=== PATIENT | male | born 1990 | race Caucasian/White ===

== ENCOUNTER 2023-07-05 06:45 | Day surgery (SDC) | payer OTHER ==
[2023-07-05] VITALS (212 sets, daily range): BP systolic 93–149; BP diastolic 48–103
--- NOTE | 2023-07-05 07:00 | NUR ---
PT HAS ARRIVED TO [facility] SUITES WITH FATHER, BOTH ESCORTED TO ROOM, POC HAS BEEN EXPLAINED ALL QUESTIONS HAVE BEEN ADDRESSED. PT IS A&OX3, FOLLOWS COMMANDS ABLE TO MAKE HIS NEEDS KNOWN. PT HAS NO COMPLAINTS AT THIS TIME. PT VS ASSESSED, PT HAS CALL LIGHT NEAR AND HAS DEMONSTRATED USE OF. PT ATTATCHED TO MONITORS.
[2023-07-05 08:34] LABS: BASO% 0.2 % (0-3); EOS% 0.2 % (0-8); HEMATOCRIT 40.6 % (39.0-50.0); HEMOGLOBIN 13.7 g/dl (14.0-18.0); IMMATURE GRANULOCYTES 0.1 % (0.0-5.0); LYMPH% 12.9 % (15-41); MEAN CELL VOLUME 86.4 fL CALC (80.0-100.0); MEAN CORPUSCULAR HGB 29.1 pG CALC (26.0-32.0); MEAN CORPUSCULAR HGB CONC 33.7 g/dL CAL (32.0-36.0); MONO% 5.4 % (2-13); NEUT# 6.58 thou/uL (1.82-7.42); NEUT% 81.2 % (42-76); RED BLOOD COUNT 4.7 mill/uL (4.70-6.10); RED CELL DISTRI WIDTH 13.3 % (11.5-15.5)
[2023-07-05] MEDS ORDERED: XANAX2 MG PO (08:37)
[2023-07-05 08:47] LABS: ALBUMIN 4.8 g/dL (3.2-5.0); ALKALINE PHOSPHATASE 89 u/l (38-126); ANION GAP 15 (6-22 (CALC)); BUN 17 mg/dL (9-20); BUN/CREATININE RATIO 18 (12-20 (CALC)); CARBON DIOXIDE 28 mmol/l (22-30); CHLORIDE 101 mmol/l (95-108); CREATININE 0.9 mg/dL (0.7-1.3); GFR FOR AFR.AMER. > 60 ML/MIN (>=60 (CALC)); GFR OTHER RACES > 60 ML/MIN (>=60 (CALC)); POTASSIUM 4.1 mmol/l (3.5-5.1); SGOT/AST 59 u/l (17-59); SODIUM 140 mmol/l (137-146); TOTAL PROTEIN 7.6 g/dL (6.3-8.2)
--- NOTE | 2023-07-05 09:30 | NUR ---
PT HAS BEEN REASSESSED, SLEEPING, NO CHANGE TO ASSESSMENT. VS ASSESSED, CALL LIGHT IS NEAR.
--- NOTE | 2023-07-05 11:00 | NUR ---
OG close note Stomach washed at this time. Naltrexone 50 mg with Clonidine 0.1 mg via OG tube. OG will be clamped for 45 minutes.
--- NOTE | 2023-07-05 11:15 | NUR ---
OG close note Stomach washed at this time. Naltrexone 50 mg with Clonidine 0.1 mg via OG tube. OG will be clamped for 45 minutes.
--- NOTE | 2023-07-05 12:00 | NUR ---
OG open note OG open at this time. Gastric content draining into drainage bag. OG to drain for 45 minutes. Propofol will be titrated down based on patient.
--- NOTE | 2023-07-05 12:45 | NUR ---
OG close note Stomach washed at this time. Naltrexone 50 mg with Clonidine 0.1 mg via OG tube. OG will be clamped for 45 minutes.
[2023-07-05] MEDS ORDERED: NALTREXONE50 MG PO (13:48)
[2023-07-05] MEDS ORDERED: CLONIDINE0.1 MG PO (13:49)
[2023-07-05] MEDS ORDERED: KLONOPIN2 MG PO (13:49)
--- NOTE | 2023-07-05 14:10 | NUR ---
OG close note Stomach washed at this time. Naltrexone 50 mg with Clonidine 0.1 mg via OG tube. OG will be clamped for 45 minutes.
--- NOTE | 2023-07-05 16:15 | NUR ---
OG close note Stomach washed at this time. Naltrexone 25 mg with Clonidine 0.2 mg via OG tube. OG will be clamped for 30 minutes.
--- NOTE | 2023-07-05 16:45 | NUR ---
OG open note OG open at this time. Gastric content draining into drainage bag. OG to drain for 30 minutes. Propofol will be titrated down based on patient.
--- NOTE | 2023-07-05 17:05 | NUR ---
Extubation note Closing medications given Benadryl 50mg IV push, Decadron 10mg IV push,Magnesium 4 grams IV, Zofran 8mg IV push, Octreotide 100mcg SC. Stomach washed out prior to extubation. Suctioned gastric content. OG removed. Patient extubated. Propofol Discontinued. Wrist restraints removed. Antwon hugger Removed. See [facility] Moderate sedate recovery record for further notes and assessment.
--- NOTE | 2023-07-05 18:00 | NUR ---
REPORT GIVEN TO ANSON PAREDES. PT IS AWAKE AND ALERT, MAKING HIS NEEDS KNOWN. LR INFUSING, VS ASSESSED, BED ALARM ACTIVE, PT FAMILY HAS BEEN CALLED AND UPDATED.
--- NOTE | 2023-07-05 18:10 | NUR ---
PT TO MED SURG FROM [facility], REPORT RECIEVED FROM NURSE. PT IS ALERT AND OREINTED X2. PT SPEECH IS CLEAR. PT HAS NO C/O PAIN. PT HAS IV SITE # 18 TO RFA AND # 20 TO LAC CLEAN AND INTACT WITH LR @ 100 ML/HR INFUSING. PT VSS. PT USING URINAL AT BEDSIDE WITH CLEAR, YELLOW URINE NOTED. PT HAS CALL LIGHT WITHIN REACH AND ALL SAFETY MEASURES IN PLACE AT THIS TIME.
--- NOTE | 2023-07-05 20:00 | NUR ---
RECEIVED REPORT FROM NURSE REGGIE, PATIENT RESTING IN BED, YELLING C/O ANXIETY WILL MEDICATE, PATIENT HAS ONGOING L AT 100CC/HR INFUSING WELL ON RFA AND SALINE LOCK ON LAC G 20, C/O GENERALIZED PAIN PS 10, WILL MEDICATE, PATIENT LUNG SOUNDS CLEAR, BREATHING EVEN UNLABORED CALL BED ALAMR IN PLACE.
--- NOTE | 2023-07-05 20:46 | NUR ---
CALLED DR. YANES, PATIENT RESTESS, C/O BEING UNABLE TO SLEEP, PATIENT WAS GIVEN ATIVAN AN HOUR EARLIER, ORDERS MADE ORDERS SENT TO .
--- NOTE | 2023-07-05 23:37 | NUR ---
PATIENT PULLED HIS 2 IV, CATHETER INTACT, NEW IV REINSERTED.
--- NOTE | 2023-07-05 23:38 | NUR ---
PATIENT SEVERAL TIMES SET OFF BED ALARM PATIENT NOT IN DISTRESS, BED ALARM IN PLACE
[2023-07-06 02:30] VITALS: BP 120/82
--- NOTE | 2023-07-06 02:51 | NUR ---
PATIENT C/O ANXIETY, UNABLE TO REST, PRN ATIVAN GIVEN.
[2023-07-06 03:38] VITALS: BP 120/70
[2023-07-06 03:39] VITALS: BP 120/70
--- NOTE | 2023-07-06 04:08 | NUR ---
PATIENT RESTING IN BED, V/S TAKEN OBTAINED, BREATHING EVEN UNLABORED, PATIENT ASSISTED TO THE BATHROOM STILL UNSTEADY GAIT, BED ALARM IN PLACE,
[2023-07-06 05:52] LABS: BASO% 0.1 % (0-3); HEMATOCRIT 36.7 % (39.0-50.0); HEMOGLOBIN 12.4 g/dl (14.0-18.0); IMMATURE GRANULOCYTES 0.2 % (0.0-5.0); LYMPH% 9.4 % (15-41); MEAN CELL VOLUME 86.4 fL CALC (80.0-100.0); MEAN CORPUSCULAR HGB 29.2 pG CALC (26.0-32.0); MEAN CORPUSCULAR HGB CONC 33.8 g/dL CAL (32.0-36.0); MONO% 4.5 % (2-13); NEUT# 7.04 thou/uL (1.82-7.42); NEUT% 85.8 % (42-76); RED BLOOD COUNT 4.25 mill/uL (4.70-6.10); RED CELL DISTRI WIDTH 13.7 % (11.5-15.5)
[2023-07-06 06:11] LABS: ALBUMIN 3.9 g/dL (3.2-5.0); ALKALINE PHOSPHATASE 71 u/l (38-126); ANION GAP 14 (6-22 (CALC)); BILIRUBIN, TOTAL 0.9 mg/dL (0.2-1.3); BUN 19 mg/dL (9-20); BUN/CREATININE RATIO 19 (12-20 (CALC)); CARBON DIOXIDE 24 mmol/l (22-30); CHLORIDE 106 mmol/l (95-108); GFR FOR AFR.AMER. > 60 ML/MIN (>=60 (CALC)); GFR OTHER RACES > 60 ML/MIN (>=60 (CALC)); POTASSIUM 4.2 mmol/l (3.5-5.1); SGOT/AST 37 u/l (17-59); SODIUM 140 mmol/l (137-146); TOTAL PROTEIN 6.2 g/dL (6.3-8.2)
--- NOTE | 2023-07-06 06:52 | NUR ---
patient pulled his new iv.
[2023-07-06 07:30] VITALS: BP 121/70
--- NOTE | 2023-07-06 08:00 | NUR ---
PT SITTING UP ON SIDE OF BED, EATING BREAKFAST. PT IS ALERT AND ORIENTED X2. PT HAS SOMEWHAT CLEAR SPEECH. NEW IV SITE STARTED # 22 RO LEFT HAND, PT TOLERATED WELL. PT LUNG SOUNDS CLEAR. BS AVTIVE AND ABD SOFT. PT IS AMBULATING WELL WITH STANDBY ASSIST. PT HAS NO C/O PAIN AT THIS TIME. PT HAS CALL LIGHT [employer] REACH.
[2023-07-06 08:17] VITALS: BP 120/70
--- NOTE | 2023-07-06 10:02 | NUR ---
Patient's support person (SP) telephoned with overnight update and to begin discharge planning. All questions answered satisfactorily, no concerns presented. SP agreeable to discharge plan.
--- NOTE | 2023-07-06 10:30 | NUR ---
PT AMBULATING UP AND DOWN HALLWAYS WITH STANDBY ASSIST IF NEEDED. PT IS ALERT AND ORIENTED X2.
--- NOTE | 2023-07-06 12:00 | NUR ---
PT OUT OF BED WALKING AROUND WITH STANDBY ASSIST. PT IS WALKING WELL. PT HAS NO C/O PAIN AT THIS TIME. ALL SAFETY MEASURES IN PLACE AT THIS TIME.
--- NOTE | 2023-07-06 12:32 | NUR ---
Father contacted, will make d/c plan after md conley.
--- NOTE | 2023-07-06 13:20 | NUR ---
Dr. Maher at bedside and updated with overnight events and PRN medications, morning labs and vital signs, ANR tile rooferrn orthopaedic and current progress on discharge requirements. Expected discharge today. Discharge plan in progress. Patient's support person (SP) telephoned with update and to arrange a discharge time. All questions answered, no concerns presented at this time. SP agreeable to discharge POC.
--- NOTE | 2023-07-06 14:41 | NUR ---
Discharge instructions given. Patient verbalizes understanding of same. Discharged in stable condition via Wheelchair to Home with family. All belongings sent with pt.
--- NOTE | 2023-07-06 14:45 | NUR ---
Patient discharged from [facility] treatment in stable condition. All [facility] discharge criteria have been met. Patient and SP educated at length on post-procedure care, medication indication/administration, and follow-up care. All questions answered, patient and SP state understanding of discharge and medication information. Naltrexone, Klonopin, and Clonidine prescriptions given to Willian (father).
== END 2023-07-06 14:36 | disposition home or self-care (01) | DRG 897 ==
LOC: ANR 06:45 → MS2 06:45 → ANR 09:00
PROVIDERS: ATTEND Anesthesiology Critical Care Medicine
DX: F11.20 Opioid dependence, uncomplicated (principal)
CPT/HCPCS: J2060; J2354; J3475